=== PATIENT | male | born 1970 | race Caucasian/White ===

== ENCOUNTER 2021-03-27 16:20 | Outpatient (REF) | payer BC, OTHER, SELFPAY ==
[2021-03-28 17:16] LABS: COVID-19 RT-PCR UVMMC Result Negative (Negative)
== END 2021-03-27 16:21 | disposition home or self-care (01) ==
LOC: LBN 16:20
PROVIDERS: Visit Provider Nurse Practitioner Family
DX: Z20.822 Contact with and (suspected) exposure to COVID-19 (principal); J06.9 Acute upper respiratory infection, unspecified
CPT/HCPCS: U0003